=== PATIENT | male | born 1940 | race Caucasian/White ===

== ENCOUNTER 2018-12-22 06:00 | Observation (INO) | payer MEDICARE ==
[2018-12-16 11:09] LABS: Basophils % (Auto) 0.9 % (0.0-1.8); Eosinophils # (Auto) 0.2 K/mm3 (0.0-0.4); Eosinophils % (Auto) 4.7 % (0.0-4.3); Hematocrit 42.6 % (35.5-45.6); Hemoglobin 14.3 gm/dl (11.8-15.2); Lymphocytes # (Auto) 1.1 K/mm3 (1.2-5.4); Lymphocytes % (Auto) 21.6 % (13.4-35.0); Mean Corpuscular HGB Conc 34 % (32-34); Mean Corpuscular Volume 98 fl (84-94); Monocytes # (Auto) 0.4 K/mm3 (0.0-0.8); Monocytes % (Auto) 7.7 % (0.0-7.3); Platelet Count 200 K/mm3 (140-440); Red Blood Count 4.36 M/mm3 (3.65-5.03); Red Cell Distribution Width 13.6 % (13.2-15.2)
--- NOTE | 2018-12-16 11:12 | Anesthesia Consultation ---
Anesthesia Consult and Med Hx Date of service: 12/22/18 - Airway Anesthetic Teeth Evaluation: Chipped, Caps ROM Head & Neck: Adequate Mental/Hyoid Distance: Inadequate Mallampati Class: Class III Intubation Access Assessment: Possibly Difficult - Pre-Operative Health Status ASA Pre-Surgery Classification: ASA2 Proposed Anesthetic Plan: General - Pulmonary Hx Smoking: No Hx Sleep Apnea: No (MERCEDEZ PRE SCREEN HIGH RISK) - Cardiovascular System Hx Hypertension: Yes (X 1 YR- PRN MEDS) - Other Systems Hx Cancer: No - Additional Comments Anesthesia Medical History Comments: Does not speak [place]. Ex- present to translate
[2018-12-16 11:19] LABS: INR 0.96 (0.87-1.13)
[2018-12-16 11:20] LABS: Partial Thromboplastin Time 33.3 Sec. (24.2-36.6)
[2018-12-16 11:23] LABS: Albumin 3.8 g/dL (3.9-5)
[2018-12-22] MEDS: LACTATED RINGERS 1,000 ML IV SCH ×2 (06:50→16:59)
[2018-12-22] MEDS ORDERED: ANCEF/STERILE WATER 2 GM/20 ML 2 GM/20 ML SYRINGE IV NR (07:00)
--- NOTE | 2018-12-22 07:17 | Anesthesia Day of Surgery ---
Anesthesia Day of Surgery - Day of Surgery Patient Examined: Yes Patient H&P Reviewed: Yes Patient is NPO: Yes
[2018-12-22] MEDS ORDERED: SUBLIMAZE ONE (07:53)
[2018-12-22] MEDS ORDERED: XYLOCAINE MPF 2% ONE (07:54)
[2018-12-22] MEDS ORDERED: DIPRIVAN 10 MG/ML IV ONE (07:54)
--- NOTE | 2018-12-22 08:15 | Post Operative Note ---
Date of procedure: 12/22/18 Pre-op diagnosis: urinary retention Post-op diagnosis: same Findings: bph Procedure: cyst turp Surgeon: BLAYNE RAYGOZA Estimated blood loss: other Pathology: list (prostate) Specimen disposition: to lab Condition: stable Disposition: PACU
[2018-12-22] MEDS ORDERED: PHENYLEPHRINE/NS Syringe 1,000 MCG/10 ML IV ONE (08:37)
[2018-12-22] MEDS ORDERED: D5W/0.45% NACL/KCL 20 MEQ 20 MEQ/1,000 ML BAG IV SCH (09:00)
[2018-12-22] MEDS ORDERED: NARCAN 0.4 MG/1 ML IV PRN (09:00)
[2018-12-22] MEDS ORDERED: TYLENOL PO PRN (09:00)
[2018-12-22] MEDS ORDERED: PERCOCET 5/325 PO PRN (09:00)
[2018-12-22] MEDS ORDERED: ZOFRAN IV PRN (09:00)
[2018-12-22] MEDS ORDERED: WATER FOR IRRIG STERILE IR ONE (09:04)
[2018-12-22] MEDS ORDERED: NACL 0.9% IR ONE ×2 (09:05)
[2018-12-22] MEDS ORDERED: ZOFRAN ONE (09:38)
--- NOTE | 2018-12-22 13:20 | Operative Report ---
PREOPERATIVE DIAGNOSIS: Urinary retention with a large middle lobe. POSTOPERATIVE DIAGNOSIS: Urinary retention with a large middle lobe. PROCEDURE: Cystoscopy, transurethral resection of prostate. SURGEON: Francis Steel M.D. ANESTHESIA: General. FINDINGS: The patient is a gentleman with recurrent urinary retention. He failed voiding trial, now presents for treatment. All risks and implications discussed with him and his family DESCRIPTION OF PROCEDURE: The patient was brought to the operating table. Following induction of anesthesia, placed in lithotomy position, prepped and draped in usual sterile fashion. Cystourethroscopy showed trilobar hypertrophy with 3+ trabeculated bladder. Middle lobe was quite prominent and covered the trigone. It was resected. Careful attention was made not to resect the trigone. Circumferential resection was carried out. The patient tolerated the procedure well. No significant complications. Estimated blood loss 100 mL. Chips were evacuated out with [employer] evacuator and sent to pathology, brought to recovery in stable condition. JOB# [id number] NADEEN/SANDEEP
[2018-12-22] MEDS: NACL 0.9% IR SCH ×11 (13:46→22:40)
--- NOTE | 2018-12-22 13:59 | Post Anesthesia Evaluation ---
- Post Anesthesia Evaluation Patient Participated: Yes Airway Patent: Yes Stable Respiratory Function: Yes Nausea/Vomiting: No Temp > 96.8F: Yes Pain Manageable: Yes Adequeate Hydration: Yes Anesthesia Complications: No Block Receding Appropriately: Not Applicable Patient on Ventilator: No
[2018-12-22] MEDS: ANCEF/NS 1 GM/50 ML 1 GM/50 ML BAG IV SCH (16:59)
[2018-12-22] MEDS: COLACE PO SCH (21:04)
[2018-12-22] MEDS ORDERED: AMBIEN PO PRN (22:00)
[2018-12-23] MEDS: NACL 0.9% IR SCH ×3 (00:29→03:00)
[2018-12-23] MEDS: ANCEF/NS 1 GM/50 ML 1 GM/50 ML BAG IV SCH ×2 (05:03→10:07)
--- NOTE | 2018-12-23 08:08 | Progress Note ---
Assessment and Plan clear home today Subjective Date of service: 12/23/18 Principal diagnosis: aur Objective - Constitutional Vitals: Vital Signs - 12hr 12/22/18 12/23/18 12/23/18 23:26 04:21 07:23 Temperature 97.5 F L 97.2 F L 98.0 F Pulse Rate 66 59 L 65 Respiratory 19 18 18 Rate Blood Pressure 107/57 93/54 105/70 O2 Sat by Pulse 92 93 95 Oximetry General appearance: Present: no acute distress Extremities: no ischemia - Gastrointestinal General gastrointestinal: Present: non-tender, non-distended - Labs CBC & Chem 7: 12/16/18 10:30 12/16/18 10:30 Medications & Allergies - Medications Allergies/Adverse Reactions: Allergies No Known Allergies Allergy (Verified 12/16/18 10:57) Home Medications: Home Medications Medication Instructions Recorded Confirmed Last Taken Type amLODIPine [Norvasc] 5 mg PO PRN PRN 12/16/18 12/16/18 Unknown History Active Medications: Generic Name Dose Route Start Last Admin Trade Name Christine PRN Reason Stop Dose Admin Acetaminophen 650 mg 12/22/18 09:00 Tylenol PO Q4H PRN Pain, Mild (1-3)/Fever > 100.5 Docusate Sodium 100 mg 12/22/18 10:00 12/22/18 21:04 Colace PO 100 mg BID JOLEEN Administration Lactated Ringer's 1,000 mls @ 100 mls/hr 12/22/18 07:00 12/22/18 16:59 Lactated Ringers IV 100 mls/hr DIRECT JOLEEN Administration Potassium Chloride/Dextrose/Sod Cl 20 meq in 1,000 mls @ 125 mls/hr 12/22/18 09:00 12/23/18 00:38 D5w/0.45% Nacl/Kcl 20 Meq IV 125 mls/hr DIRECT JOLEEN Administration Cefazolin Sodium 1 gm in 50 mls @ 100 mls/hr 12/22/18 17:30 12/23/18 05:03 Ancef/Ns 1 Gm/50 Ml IV 12/23/18 17:59 100 mls/hr Q8H JOLEEN Administration Protocol Naloxone HCl 0.1 mg 12/22/18 09:00 Narcan 0.4 Mg/1 Ml IV Q2MIN PRN Res Rate </= 8 or 02 SAT < 92% Ondansetron HCl 4 mg 12/22/18 09:00 Zofran IV Q8H PRN Nausea And Vomiting Oxycodone/Acetaminophen 2 tab 12/22/18 09:00 Percocet 5/325 PO Q6H PRN Pain, Moderate (4-6) Sodium Chloride 2,000 ml 12/22/18 09:00 12/23/18 03:00 Nacl 0.9% IR 2,000 ml DIRECT JOLEEN Administration Zolpidem Tartrate 5 mg 12/22/18 22:00 Ambien PO QHS PRN Sleep
--- NOTE | 2018-12-23 08:08 | Discharge Summary ---
Short Stay Discharge Plan Activity: other (no straining ) Weight Bearing Status: Full Weight Bearing Diet: regular Special Instructions: other (teach almanzar care) Durable Medical Equipment Needed Upon Discharge: other (almanzar ) Follow up with: JAVIER CORONADO MD [Primary Care Provider] - 7 Days BLAYNE RAYGOZA MD [Staff Physician] - 7 Days
[2018-12-23 09:00] LABS: Basophils % (Auto) 0.3 % (0.0-1.8); Eosinophils # (Auto) 0.2 K/mm3 (0.0-0.4); Hematocrit 39.6 % (35.5-45.6); Hemoglobin 13.3 gm/dl (11.8-15.2); Lymphocytes # (Auto) 1.1 K/mm3 (1.2-5.4); Lymphocytes % (Auto) 14.7 % (13.4-35.0); Mean Corpuscular HGB Conc 34 % (32-34); Mean Corpuscular Volume 97 fl (84-94); Monocytes # (Auto) 0.5 K/mm3 (0.0-0.8); Monocytes % (Auto) 7.3 % (0.0-7.3); Platelet Count 180 K/mm3 (140-440); Red Blood Count 4.07 M/mm3 (3.65-5.03); Red Cell Distribution Width 13.2 % (13.2-15.2)
[2018-12-23 09:19] LABS: Calcium 8.3 mg/dL (8.4-10.2)
[2018-12-23] MEDS: COLACE PO SCH (10:11)
[2018-12-23 12:13] VITALS: BP 134/84
== END 2018-12-23 15:30 | disposition home or self-care (01) ==
LOC: OR 06:00 → 3B-SURG 08:15
PROVIDERS: ADMIT Urology; ATTEND Urology
DX: N40.1 Benign prostatic hyperplasia with lower urinary tract symptoms (principal); R33.8 Other retention of urine; Z79.899 Other long term (current) drug therapy; Z79.01 Long term (current) use of anticoagulants
CPT/HCPCS: 36415; 52601; 80048; 80053; 85025; 85610; 85730; 86850; 86900; 86901; 88305; 96365; 96366; A4217; G0378; J0690; J2370; J2405; J2704; J3010; J7120